=== PATIENT | female | born 1935 | race Two or more races ===

== ENCOUNTER 2022-04-22 10:55 | Emergency (ER) | payer MEDICARE, OTHER ==
[~2022-04-22] VITALS: Ht 157.5 cm; Wt 46.8 kg
[2022-04-22] MEDS ORDERED: LORazepam 0.5 MG TAB PO ONE (11:30)
[2022-04-22 11:58] LABS: Basophils # (auto) 0.1 10 ^3/uL (0-0.2); Eosinophils # (auto) 0.2 10 ^3/uL (0-0.8); Eosinophils % (auto) 2.9 % (0.0-7.0); Hematocrit 43.6 % (36.0-46.0); Hemoglobin 14.1 g/dL (12.2-16.2); Lymphocytes # (auto) 1.3 10 ^3/uL (0.4-5.4); Lymphocytes % (auto) 18.4 % (10.0-50.0); Mean Corpuscular Hemoglobin 31.2 pg (28.0-32.0); Mean Corpuscular Hgb Conc. 32.4 g/dL (32.0-36.0); Mean Corpuscular Volume 96.3 fL (80.0-100.0); Monocytes # (auto) 0.4 10 ^3/uL (0-1.3); Monocytes % (auto) 5.7 % (0.0-12.0); Neutrophils # (auto) 5.2 10 ^3/uL (1.6-8.6); Nucleated Red Blood Cells % 0.1 %; Red Blood Cells 4.52 10^6/uL (4.0-5.20); Red Cell Distribution Width 17.4 % (11.8-14.3); White Blood Cell 7.2 10^3/uL (4.4-10.8)
[2022-04-22 12:35] LABS: Albumin 2.3 g/dL (3.4-5.0); Potassium 3.1 mmol/L (3.5-5.1)
[2022-04-22 12:40] LABS: BUN/Creatinine Ratio 24.3; Bilirubin, Total 0.9 mg/dL (0.2-1.0); Total Protein 6.4 g/dL (6.4-8.2)
[2022-04-22 13:16] VITALS: BP 127/57
== END 2022-04-22 14:36 | disposition home or self-care (01) ==
LOC: ER 10:55
DX: F41.8 Other specified anxiety disorders (principal); R22.43 Localized swelling, mass and lump, lower limb, bilateral; I10 Essential (primary) hypertension; Z90.49 Acquired absence of other specified parts of digestive tract; Z90.710 Acquired absence of both cervix and uterus
CPT/HCPCS: 36415; 80053; 85025

== ENCOUNTER 2022-06-06 09:44 | Emergency (ER) | payer MEDICARE ==
[~2022-06-06] VITALS: Ht 157.5 cm; Wt 50.0 kg
[2022-06-06] MEDS ORDERED: SODIUM BICARBONATE 8.4% INJ 50ML SYRINGE IV ONE (09:45)
[2022-06-06] MEDS ORDERED: AMIODARONE HCL (50 MG/ ML) 3 ML VIAL IV ONE (09:45)
[2022-06-06] MEDS ORDERED: CALCIUM CHLOR(10%) 100MG/ML 10ML SYRINGE IV ONE (09:45)
[2022-06-06] MEDS ORDERED: EPINEPHrine HCL 1 MG/10 ML SYRG IV ONE (09:45)
[2022-06-06] MEDS ORDERED: SODIUM BICARBONATE 8.4 % INJ 50ML VIAL IV ONE (10:15)
[2022-06-06] MEDS ORDERED: SODIUM CHLORIDE 0.9% 1,000 ML IV ONE (10:15)
[2022-06-06 10:19] VITALS: BP 107/57
[2022-06-06] MEDS ORDERED: NOREPINEPHRINE 8 MG/250ML KIT 250 ML IV ONE (10:22)
[2022-06-06 10:33] LABS: Basophils # (auto) 0.1 10 ^3/uL (0-0.2); Eosinophils # (auto) 0.3 10 ^3/uL (0-0.8); Lymphocytes # (auto) 8.4 10 ^3/uL (0.4-5.4); Mean Corpuscular Hemoglobin 32.1 pg (28.0-32.0); Monocytes # (auto) 0.4 10 ^3/uL (0-1.3); Monocytes % (auto) 1.7 % (0.0-12.0)
[2022-06-06 10:35] LABS: Basophils % (auto) 0.3 % (0.0-2.0); Eosinophils % (auto) 1.3 % (0.0-7.0); Hematocrit 29.8 % (36.0-46.0); Hemoglobin 9.7 g/dL (12.2-16.2); Lymphocytes % (auto) 40.1 % (10.0-50.0); Mean Corpuscular Hgb Conc. 32.6 g/dL (32.0-36.0); Mean Corpuscular Volume 98.4 fL (80.0-100.0); Neutrophils # (auto) 11.9 10 ^3/uL (1.6-8.6); Neutrophils % (auto) 56.6 % (37.0-80.0); Nucleated Red Blood Cells % 0.6 %; Red Blood Cells 3.03 10^6/uL (4.0-5.20); Red Cell Distribution Width 14.5 % (11.8-14.3)
[2022-06-06 10:39] LABS: Albumin 1.3 g/dL (3.4-5.0); Calcium 8.7 mg/dL (8.5-10.1); Magnesium 2.4 mg/dL (1.6-2.6); Potassium 3.2 mmol/L (3.5-5.1)
[2022-06-06 10:43] LABS: BUN/Creatinine Ratio 16.5; Bilirubin, Total 0.4 mg/dL (0.2-1.0); Total Protein 3.5 g/dL (6.4-8.2)
[2022-06-06] MEDS ORDERED: NOREPINEPHRINE 8 MG/250ML KIT 250 ML IV SCH (11:30)
[2022-06-06] MEDS ORDERED: PHENYLEPHRINE IV 250 ML IV ONE (11:45)
[2022-06-06 11:47] VITALS: BP 80/43
[2022-06-06 13:09] LABS: Lactic Acid w/Reflex 7.4 mmol/L (0.4-2.0)
[2022-06-06] MEDS ORDERED: VASOPRESSIN 50 UNITS in D5W 5% 247.5 ML IV SCH (13:30)
[2022-06-06 13:45] VITALS: BP 80/43
[2022-06-06] MEDS ORDERED: DOPamine 1600MCG/ML D5W 250 ML IV ONE (14:15)
[2022-06-06 14:17] LABS: Hematocrit 31.7 % (36.0-46.0); Hemoglobin 10.3 g/dL (12.2-16.2)
== END 2022-06-06 15:02 ==
LOC: EDBD 09:44 → EDUNIT# 09:44 → ER 09:44
DX: I46.9 Cardiac arrest, cause unspecified (principal); G93.41 Metabolic encephalopathy; I10 Essential (primary) hypertension; F41.9 Anxiety disorder, unspecified
CPT/HCPCS: 36415; 36556; 36600; 70450; 71045; 80053; 82805; 83605; 83735; 84484; 85014; 85018; 85025; 86850; 86900; 86901; 87040; 87070; 87077; 87186; 87205; 92950; 93005; 96360; 99291; J0171; J0282; J2370; J7030; J7060; 94002